=== PATIENT | male | born 1960 | race Caucasian/White ===

== ENCOUNTER 2020-03-05 14:12 | Emergency (ER) | payer BC ==
--- NOTE | 2020-03-05 14:34 | EDM.PDOC ---
ED HPI GENERAL MEDICAL PROBLEM - General Chief Complaint: General Stated Complaint: fever, shortness of breath, fatigue Time Seen by Provider: 03/05/20 14:34 Source of Information: Reports: Patient History Limitations: Reports: No Limitations - History of Present Illness INITIAL COMMENTS - FREE TEXT/NARRATIVE: Ihsan Louis, 60-year-old male, developed initial COVID 19 symptoms on 23 February 2020. He underwent a nasopharyngeal swab on the , being notified on the that it was positive. He had been advised for 10 days isolation beginning on the , which would have released him as of today being on no restrictions. He presents today with worsening aches and pains, increased diarrhea, increased body aches, fever that is waxing and waning, increased difficulty in his breathing. He states his symptoms are worsening in the same fashion that his son, who is also been diagnosed with COVID-19 had developed with him currently hospitalized for secondary pneumonia at [facility] in [place]. Family members all exposed to testing positive after a family reunion/get together over the weekend. He has maintained his quarantine period as instructed. He has had numerous loose stools this morning. Fever has spiked and then decreased. He has been attempting to maintain fluid hydration. His taste is altered stating everything tastes like metal. Onset Date: 02/23/20 Duration: Day(s): Location: Reports: Head, Chest, Abdomen - Related Data Allergies Allergy/AdvReac Type Severity Reaction Status Date / Time No Known Allergies Allergy Verified 03/05/20 14:21 Home Meds: Home Meds SUMAtriptan [Imitrex] 50 mg PO ASDIRECTED PRN 09/16/13 [History] Simvastatin 40 mg PO BEDTIME 09/16/13 [History] amLODIPine Besylate [Amlodipine Besylate] 5 mg PO DAILY 09/16/13 [History] Losartan [Cozaar] 50 mg PO DAILY 03/05/20 [History] Ondansetron [Ondansetron ODT] 4 mg PO Q8H PRN 03/05/20 [History] Past Medical History Cardiovascular History: Reports: High Cholesterol, Hypertension Social & Family History - Family History Family Medical History: Noncontributory - Tobacco Use Smoking Status *Q: Former Smoker Used Tobacco, but Quit: Yes Month/Year Tobacco Last Used: quit 2003 - Caffeine Use Caffeine Use: Reports: Coffee - Alcohol Use Days Per Week of Alcohol Use: 3 Number of Drinks Per Day: 2 Total Drinks Per Week: 6 - Recreational Drug Use Recreational Drug Use: No ED ROS GENERAL - Review of Systems Review Of Systems: Comprehensive ROS is negative, except as noted in HPI. ED EXAM, GENERAL - Physical Exam Exam: See Below Free Text/Narrative:: Alert oriented, demonstrating mild respiratory distress. HEENT is negative discharge or deformity. There is no cyanosis nor pallor noted. He has pink moist mucous membranes with no erythema nor exudate present. Nasal passages are slightly congested. Tenderness to the base of the head, neck and major muscle groups throughout his body is noted on palpation. Thorax is slightly diminished in the left base in comparison to the right and raspy during his exhalation. It does induce a cough when exhalation cycle. I do not appreciate any wheezes. Cardiac is S1-S2 I do not appreciate any murmur. Rotund abdomen with bowel sounds present no areas of pain, no flank pain. He has no edema to the extremities. Course - Vital Signs Last Recorded V/S: Last Vital Signs Temp 36.9 C 03/05/20 14:13 Pulse 91 03/05/20 14:13 Resp 18 03/05/20 14:13 BP 133/87 03/05/20 14:13 Pulse Ox 92 L 03/05/20 14:13 - Orders/Labs/Meds Labs: Laboratory Tests 03/05/20 03/05/20 03/05/20 Range/Units 15:10 15:10 15:10 WBC 5.22 (5.00-10.00) 10^3/uL RBC 5.70 (4.50-6.00) 10^6/uL Hgb 16.5 (13.0-17.0) g/dL Hct 47.7 (40.0-52.0) % MCV 83.7 (82.0-92.0) fL MCH 28.9 (27.0-31.0) pg MCHC 34.6 (32.0-36.0) g/dL RDW 13.1 (11.5-14.5) % Plt Count 234 (150-400) 10^3/uL MPV 8.7 (7.4-10.4) fL Immature Gran % (Auto) 0.2 (0.0-5.0) % Neut % (Auto) 66.5 (50.0-70.0) % Lymph % (Auto) 24.5 (20.0-40.0) % Leake % (Auto) 8.4 H (2.0-8.0) % Eos % (Auto) 0.2 L (1.0-3.0) % Baso % (Auto) 0.2 (0.0-1.0) % Neut # (Auto) 3.47 (2.50-7.00) 10^3/uL Lymph # (Auto) 1.28 (1.00-4.00) 10^3/uL Leake # (Auto) 0.44 (0.10-0.80) 10^3/uL Eos # (Auto) 0.01 L (0.10-0.30) 10^3/uL Baso # (Auto) 0.01 (0.00-0.10) 10^3/uL Immature Gran # (Auto) 0.01 (0.00-0.50) 10^3/uL Sodium 136 (136-145) mmol/L Potassium 3.8 (3.3-5.3) mmol/L Chloride 95 L (98-115) mmol/L Carbon Dioxide 24.4 (21.0-32.0) mmol/L Anion Gap 20.4 H (5-15) mmol/L BUN 16 (6-25) mg/dL Creatinine 0.84 (0.51-1.17) mg/dL Est Cr Clr Drug Dosing 108.98 mL/min Estimated GFR (MDRD) > 60 mL/min Glucose 97 (75 - 99) mg/dL Lactic Acid 1.4 (0.4-2.0) mmol/L Calcium 9.0 (8.7-10.3) mg/dL Total Bilirubin 0.6 (0.2-1.0) mg/dL AST 39 H (15-37) U/L ALT 33 (12-78) U/L Alkaline Phosphatase 63 (46-116) IU/L Total Protein 8.8 H (6.4-8.2) g/dL Albumin 4.05 (3.00-4.80) g/dL Departure - Departure Time of Disposition: 15:51 Disposition: Home, Self-Care 01 Condition: Good Clinical Impression: COVID-19 determined by clinical diagnostic criteria, Diarrhea due to COVID-19, Increasing shortness of breath Pneumonia Qualifiers: Pneumonia type: due to unspecified organism Laterality: left Lung location: lower lobe of lung Qualified Code(s): J18.9 - Pneumonia, unspecified organism - Discharge Information *PRESCRIPTION DRUG MONITORING PROGRAM REVIEWED*: Not Applicable *COPY OF PRESCRIPTION DRUG MONITORING REPORT IN PATIENT JAYLENE: Not Applicable Instructions: Diarrhea, Adult, Shortness of Breath, Adult, [id number], Cough, Adult, [id number], COVID-19: How to Protect Yourself and Others - CDC, Diarrhea, Adult, [id number], Prevent the Spread of COVID-19 if You Are Sick - [facility] Forms: ED Department Discharge Additional Instructions: You have a left lower lobe pneumonia with normal laboratory findings regarding your infectious process and electrolytes. Your kidney function is remaining in a normal range. Continue your home medications as instructed previously. Make sure that you have adequate intake of fluid, water or sports drinks containing electrolytes. Maintaining your electrolytes is very important with continued diarrhea. A diet consisting of bananas, rice, apples, and dry toast and possibly adding yogurt other recommendations for diarrhea. Contact your clinic early this week to advise them of your symptoms. Call or return to the emergency department if you experience worsening shortness of breath or fever greater than 102 that does not improve with Tylenol or Motrin, or continues to slowly raise. Sepsis Event Note (ED) - Evaluation Sepsis Screening Result: Possible Sepsis Risk - Focused Exam Vital Signs: Vital Signs Temp Pulse Resp BP Pulse Ox 03/05/20 14:13 36.9 C 91 18 133/87 92 L - Problem List & Annotations (1) COVID-19 determined by clinical diagnostic criteria SNOMED Code(s): 135831708, 528660899 Code(s): U07.1 - COVID-19 Status: Acute Priority: High (2) Pneumonia SNOMED Code(s): 102950427 Code(s): J18.9 - PNEUMONIA, UNSPECIFIED ORGANISM Status: Acute Priority: High Qualifiers: Pneumonia type: due to unspecified organism Laterality: left Lung location: lower lobe of lung Qualified Code(s): J18.9 - Pneumonia, unspecified organism (3) Diarrhea due to COVID-19 SNOMED Code(s): 846271108 Code(s): U07.1 - COVID-19; A08.39 - OTHER VIRAL ENTERITIS Status: Acute Priority: High (4) Increasing shortness of breath SNOMED Code(s): 026887068 Code(s): R06.02 - SHORTNESS OF BREATH Status: Acute Priority: High - Problem List Review Problem List Initiated/Reviewed/Updated: Yes - Assessment/Plan Plan: You have a left lower lobe pneumonia with normal laboratory findings regarding your infectious process and electrolytes. Your kidney function is remaining in a normal range. Continue your home medications as instructed previously. Make sure that you have adequate intake of fluid, water or sports drinks containing electrolytes. Maintaining your electrolytes is very important with continued diarrhea. A diet consisting of bananas, rice, apples, and dry toast and possibly adding yogurt other recommendations for diarrhea. Contact your clinic early this week to advise them of your symptoms. Call or return to the emergency department if you experience worsening shortness of breath or fever greater than 102 that does not improve with Tylenol or Motrin, or continues to slowly raise.
--- NOTE | 2020-03-05 15:14 | CR ---
[id number] RAD/RAD Chest PA And Lateral EXAM: RAD Chest PA And Lateral CLINICAL DATA: SHORTNESS OF BREATH COMPARISON: CORRELATION IS MADE WITH JANUARY 09, 2013 FINDINGS: An extensive infiltrate is seen at the left lung base Pleural reaction also is seen at the left lung base Multiple old left-sided rib fractures are seen Minimal parenchymal changes are seen at the right lung base The cardiac silhouette is enlarged IMPRESSION: PNEUMONIA LEFT LUNG BASE Bradford Pat MD 03/05/20 [id number] Thank you for allowing us to participate in the care of your patient.
[2020-03-05 15:38] LABS: ANION GAP 20.4 mmol/L (5-15); CHLORIDE,CL 95 mmol/L (98-115); SODIUM,NA 136 mmol/L (136-145)
== END 2020-03-05 16:30 | disposition home or self-care (01) ==
LOC: KA.ED 14:12
DX: U07.1 COVID-19 (principal); J12.89 Other viral pneumonia; I10 Essential (primary) hypertension; E78.00 Pure hypercholesterolemia, unspecified; Z87.891 Personal history of nicotine dependence; Z79.899 Other long term (current) drug therapy
CPT/HCPCS: 36415; 71046; 80053; 83605; 85025; 99284; 99285-25

== ENCOUNTER 2023-10-28 06:58 | Day surgery (SDC) | payer MEDICARE, BC ==
[2023-10-28] MEDS ORDERED: Propofol 200 MG/20 ML SDV IV ONE (06:59)
[2023-10-28] MEDS: Lactated Ringers 1,000 ML ONE (07:13)
[2023-10-28] MEDS ORDERED: Propofol 200 MG/20 ML SDV ONE ×3 (07:14→08:47)
[2023-10-28] MEDS: Lactated Ringers 1,000 ML IV SCH (07:20)
[2023-10-28] MEDS ORDERED: Sodium Chloride 0.9% 10 ML Syringe FLUSH PRN (10:30)
[2023-10-28] MEDS ORDERED: Lactated Ringers 1,000 ML IV SCH (10:30)
== END 2023-10-28 10:55 | disposition home or self-care (01) ==
LOC: KA.SDS 06:58
PROVIDERS: ATTEND Family Medicine
DX: Z12.11 Encounter for screening for malignant neoplasm of colon (principal); D12.3 Benign neoplasm of transverse colon; D12.5 Benign neoplasm of sigmoid colon; K57.30 Diverticulosis of large intestine without perforation or abscess without bleeding; I10 Essential (primary) hypertension; E78.00 Pure hypercholesterolemia, unspecified; G47.33 Obstructive sleep apnea (adult) (pediatric); I35.0 Nonrheumatic aortic (valve) stenosis; K21.9 Gastro-esophageal reflux disease without esophagitis; G43.909 Migraine, unspecified, not intractable, without status migrainosus; E66.01 Morbid (severe) obesity due to excess calories; R21 Rash and other nonspecific skin eruption; Z87.891 Personal history of nicotine dependence; Z68.36 Body mass index [BMI] 36.0-36.9, adult; Z80.0 Family history of malignant neoplasm of digestive organs; Z86.010 Personal history of colon polyps; Z79.899 Other long term (current) drug therapy; Z88.8 Allergy status to other drugs, medicaments and biological substances
CPT/HCPCS: 00811; J2704; J3490; J7120